=== PATIENT | female | born 1940 | race African-American/Black ===

== ENCOUNTER 2016-06-15 14:21 | Inpatient (IN) | payer OTHER ==
[~2016-06-15] VITALS: Ht 157.5 cm; Wt 62.0 kg
[2016-06-15] MEDS ORDERED: cloNIDine HCL 0.1 MG TAB PO ONE (14:45)
[2016-06-15 15:13] LABS: Basophils # (auto) 0 uL; Basophils % (auto) 0.7 % (0.0-2.0); DEFINITIVE VIEW TRANSMISSION; Eosinophils # (auto) 0.1 uL; Eosinophils % (auto) 1.5 % (0.0-7.0); Hematocrit 39.7 % (36.0-46.0); Hemoglobin 12.9 g/dL (12.2-16.2); Lymphocytes # (auto) 1.1 uL; Lymphocytes % (auto) 19.2 % (10.0-50.0); Mean Corpuscular Hemoglobin 26.8 pg (28.0-32.0); Mean Corpuscular Hgb Conc. 32.5 g/dL (32.0-36.0); Mean Corpuscular Volume 82.4 fL (80.0-100.0); Mean Platelet Volume 10.1 fL (7.4-10.4); Monocytes # (auto) 0.3 uL; Monocytes % (auto) 5.9 % (0.0-12.0); Neutrophils # (auto) 4.2 uL; Neutrophils % (auto) 72.7 % (37.0-80.0); Platelet Count (auto) 221 10^3/uL (140-450); Red Cell Distribution Width 18.2 % (11.6-16.0); SUSPECT VIEW TRANSMISSION; White Blood Cell 5.7 10^3/uL (4.4-10.8)
[2016-06-15 15:18] LABS: Albumin 3.5 g/dL (3.4-5.0); BUN/Creatinine Ratio 13.1; Calcium 8.8 mg/dL (8.5-10.1)
[2016-06-15 15:23] LABS: Bilirubin, Total 0.7 mg/dL (0.2-1.0); Total Protein 7.9 g/dL (6.4-8.2)
[2016-06-15] MEDS ORDERED: FUROSEMIDE 40 MG/4 ML VIAL IV ONE (16:45)
[2016-06-15] MEDS ORDERED: POTASSIUM CHL 20MEQ/100ML 100 ML IV ONE (17:00)
[2016-06-15] MEDS ORDERED: MORPHINE SULF INJ 2 MG/ML SYRINGE 1ML IV PRN ×2 (17:15)
[2016-06-15] MEDS ORDERED: DOCUSATE SOD 100 MG CAP PO PRN (17:15)
[2016-06-15] MEDS ORDERED: DEXTROSE (50%) 50ML SYRG IV PRN (17:15)
[2016-06-15] MEDS ORDERED: ACETAMINOPHEN 325 MG TAB PO PRN (17:15)
[2016-06-15] MEDS ORDERED: HYDROcodone-ACET 5/325MG TAB PO PRN (17:15)
[2016-06-15] MEDS ORDERED: ONDANSETRON HCL 4 MG/2 ML VIAL IV PRN (17:15)
[2016-06-15] MEDS ORDERED: TEMAZEPAM 15 MG CAP PO PRN (17:15)
[2016-06-15] MEDS ORDERED: NITROGLYCERIN 0.4 MG SL TAB SL PRN (17:15)
[2016-06-15] MEDS ORDERED: HCTZ 25 MG TAB PO ONE (17:30)
[2016-06-15] MEDS ORDERED: POTASSIUM CHL 10 Meq TABLET PO ONE (17:30)
[2016-06-15] MEDS ORDERED: MULTIPLE VITAMIN TAB PO ONE (17:30)
[2016-06-15 17:34] LABS: B-Type Natriuretic Peptide 310.46 pg/mL (0-100); Temperature: 22.1 C (20.0-25.0)
[2016-06-15 18:19] LABS: Cholesterol 220 mg/dL (<200); HDL Cholesterol 63 mg/dL (40-59); LDL Cholesterol 132 mg/dL (<100); Triglycerides 164 mg/dL (<150)
[2016-06-15 18:39] LABS: Urine Bilirubin Negative (Negative); Urine Blood Negative /uL (Negative); Urine Color Yellow (Yellow); Urine Glucose Normal (Normal); Urine Ketone Negative (Negative); Urine Nitrite Negative (Negative); Urine RBC <1 /hpf (0 - 4); Urine Squamous Epithelial Cell FEW /hpf (<5); Urine Urobilinogen Normal (Negative); Urine pH 6.5 (5.0-8.0)
[2016-06-15] MEDS ORDERED: CLO01T PO (18:45)
[2016-06-15] MEDS ORDERED: ASPI81CH43 PO (18:45)
[2016-06-15] MEDS ORDERED: LISI-285 PO (18:45)
[2016-06-15] MEDS: cloNIDine HCL 0.1 MG TAB PO PRN (19:31)
[2016-06-15 21:59] VITALS: BP 157/75
[2016-06-15] MEDS ORDERED: ATORVASTATIN 20 MG TAB PO SCH (22:00)
[2016-06-15] MEDS: cloNIDine HCL 0.1 MG TAB PO SCH (22:34)
[2016-06-15] MEDS: SODIUM CHLOR 0.9% PF (SALINE LOCK) 10ML VIAL IV SCH (22:34)
[2016-06-15] MEDS: ACCU-CHEK COMFORT CURVE STRIP VI SCH (22:35)
[2016-06-15] MEDS: InsuLIN REG 1unit/0.01ml Soln (100units/ml) SC SCH (22:35)
[2016-06-16 05:24] VITALS: BP 176/80
[2016-06-16] MEDS: SODIUM CHLOR 0.9% PF (SALINE LOCK) 10ML VIAL IV SCH ×2 (05:43→13:42)
[2016-06-16] MEDS: HCTZ 25 MG TAB PO SCH ×2 (05:44→17:29)
[2016-06-16] MEDS: ACCU-CHEK COMFORT CURVE STRIP VI SCH ×3 (05:45→17:08)
[2016-06-16] MEDS: LISINOPRIL 10 MG TAB PO SCH ×2 (05:45→17:09)
[2016-06-16] MEDS: InsuLIN REG 1unit/0.01ml Soln (100units/ml) SC SCH ×3 (05:46→17:00)
[2016-06-16 06:17] LABS: Basophils # (auto) 0 uL; Basophils % (auto) 0.6 % (0.0-2.0); Eosinophils # (auto) 0.1 uL; Eosinophils % (auto) 2.6 % (0.0-7.0); Hematocrit 35.3 % (36.0-46.0); Hemoglobin 11.6 g/dL (12.2-16.2); Lymphocytes # (auto) 1.1 uL; Lymphocytes % (auto) 29.8 % (10.0-50.0); Mean Corpuscular Hemoglobin 27.1 pg (28.0-32.0); Mean Corpuscular Volume 82.2 fL (80.0-100.0); Mean Platelet Volume 10.1 fL (7.4-10.4); Monocytes # (auto) 0.3 uL; Monocytes % (auto) 8.3 % (0.0-12.0); Neutrophils # (auto) 2.1 uL; Neutrophils % (auto) 58.7 % (37.0-80.0); Platelet Count (auto) 155 10^3/uL (140-450); Red Cell Distribution Width 18.1 % (11.6-16.0); SUSPECT VIEW TRANSMISSION; White Blood Cell 3.6 10^3/uL (4.4-10.8)
[2016-06-16 06:33] LABS: Potassium 3.2 mmol/L (3.5-5.1)
[2016-06-16 06:40] LABS: BUN/Creatinine Ratio 14.6; Calcium 8.3 mg/dL (8.5-10.1)
[2016-06-16 06:43] LABS: Bilirubin, Total 0.7 mg/dL (0.2-1.0); Total Protein 6.7 g/dL (6.4-8.2)
[2016-06-16 08:00] VITALS: BP 184/83
[2016-06-16] MEDS: cloNIDine HCL 0.1 MG TAB PO SCH (09:46)
[2016-06-16] MEDS ORDERED: MULTIPLE VITAMIN TAB PO SCH (10:00)
[2016-06-16] MEDS ORDERED: POTASSIUM CHL 10 Meq TABLET PO SCH (10:00)
[2016-06-16] MEDS: cloNIDine HCL 0.1 MG TAB PO PRN (12:40)
[2016-06-16 13:00] VITALS: BP 176/84
[2016-06-16 17:00] VITALS: BP 176/91
== END 2016-06-16 20:42 | disposition home or self-care (01) | DRG 291 ==
LOC: ER 14:22 → TELE 14:23 → TELE-CENTR 19:00
PROVIDERS: ADMIT Internal Medicine; ATTEND Internal Medicine
DX: I13.0 Hypertensive heart and chronic kidney disease with heart failure and stage 1 through stage 4 chronic kidney disease, or unspecified chronic kidney disease (principal); I50.43 Acute on chronic combined systolic (congestive) and diastolic (congestive) heart failure; E11.21 Type 2 diabetes mellitus with diabetic nephropathy; N18.3 Chronic kidney disease, stage 3 (moderate); E87.6 Hypokalemia; E78.5 Hyperlipidemia, unspecified; E66.9 Obesity, unspecified; E11.22 Type 2 diabetes mellitus with diabetic chronic kidney disease; Z80.9 Family history of malignant neoplasm, unspecified; Z88.8 Allergy status to other drugs, medicaments and biological substances; Z68.25 Body mass index [BMI] 25.0-25.9, adult
CPT/HCPCS: 36415; 71020; 80053; 80061; 81001; 82962; 83036; 83605; 83880; 84443; 84484; 85025; 87040; 93005; 93306; 99291; J3480